=== PATIENT | female | born 1945 | race Caucasian/White ===

== ENCOUNTER 2017-12-17 12:57 | Emergency (ER) | payer MEDICARE ==
[~2017-12-17] VITALS: Ht 160 cm; Wt 50.0 kg
[~2017-12-17 12:57] MED LIST: PERCOCET 5/325M1 TAB PO
[2017-12-17 13:03] VITALS: BP 149/89
[2017-12-17] MEDS ORDERED: ZOFRAN4 M1 PO (13:39)
[2017-12-17] MEDS ORDERED: TAM75CAP PO (13:39)
[2017-12-17] MEDS ORDERED: ZPAK PO (13:39)
[2017-12-17] MEDS ORDERED: CHERATUSSIN PO (13:42)
== END 2017-12-17 14:16 | disposition home or self-care (01) ==
LOC: ED 12:57
DX: J11.1 Influenza due to unidentified influenza virus with other respiratory manifestations (principal)